=== PATIENT | female | born 1935 | race Caucasian/White ===

== ENCOUNTER 2016-08-06 04:32 | Emergency (ER) | payer OTHER ==
[~2016-08-06] VITALS: Ht 172.7 cm; Wt 96.2 kg
[2016-08-06] MEDS ORDERED: PRAVASTATIN SOD20 MG PO (04:43)
[2016-08-06] MEDS ORDERED: IMDUR SA30 MG PO (04:43)
[2016-08-06] MEDS ORDERED: VERAPAMIL HCL180 MG PO (04:43)
[2016-08-06] MEDS ORDERED: ASPIR-TRIN325 MG PO (04:44)
[2016-08-06] MEDS ORDERED: VITAMIN D1000 IU PO (04:44)
[2016-08-06] MEDS ORDERED: OXYCODONE HCL5 MG PO (06:42)
== END 2016-08-06 06:55 | disposition home or self-care (01) ==
LOC: ED 04:32
DX: M25.551 Pain in right hip (principal); M25.512 Pain in left shoulder; R10.30 Lower abdominal pain, unspecified; Z88.2 Allergy status to sulfonamides; Z79.899 Other long term (current) drug therapy; Z79.82 Long term (current) use of aspirin